=== PATIENT | male | born 1980 | race Caucasian/White ===

== ENCOUNTER 2017-10-12 15:31 | Emergency (ER) | payer SELFPAY ==
[~2017-10-12] VITALS: Ht 190.5 cm; Wt 99.1 kg
[2017-10-12 16:16] VITALS: BP 126/70; PULSE 85; TEMP 98.6
[2017-10-12] MEDS ORDERED: MOBIC 7.5MG7.5 MG PO (16:31)
== END 2017-10-12 16:48 | disposition home or self-care (01) ==
LOC: COL.ER 15:31
DX: S93.402A Sprain of unspecified ligament of left ankle, initial encounter (principal); M25.461 Effusion, right knee; X50.0XXA Overexertion from strenuous movement or load, initial encounter; Y93.72 Activity, wrestling
CPT/HCPCS: L1846